=== PATIENT | female | born 1930 | race Caucasian/White ===

== ENCOUNTER 2016-11-17 16:15 | Emergency (ER) | payer MEDICARE ==
[2016-11-17] MEDS ORDERED: HYDROCODONE/ACETAMINOPHEN 5-325 MG TABLET PO ONE (17:06)
--- NOTE | 2016-11-17 17:10 | ER Document Report ---
HPI - HPI Patient complains to provider of: Left wrist injury Onset: This afternoon Onset/Duration: Sudden Quality of pain: Achy Pain Level: 3 Context: Pt States that she tripped wearing flip-flops and fell onto an outstretched hand. Patient complains of left wrist pain. Patient is right-hand dominant. Patient denies any head injury or loss of consciousness. Associated Symptoms: Other - left wrist injury Exacerbated by: Movement Relieved by: Denies Similar symptoms previously: No Recently seen / treated by doctor: No - ROS ROS below otherwise negative: Yes Systems Reviewed and Negative: Yes All other systems reviewed and negative - GASTROINTESTINAL Gastrointestinal: DENIES: Nausea, Patient vomiting - REPRODUCTIVE Reproductive: DENIES: : - MUSCULOSKELETAL Musculoskeletal: REPORTS: Extremity pain - left wrist, Swelling - DERM Skin Color: Ecchymosis Skin Problems: None Past Medical History - General Information source: Patient, Relative - Social History Smoking Status: Never Smoker Frequency of alcohol use: None Drug Abuse: None Occupation: none Lives with: Family Family History: Reviewed & Not Pertinent Patient has suicidal ideation: No Patient has homicidal ideation: No - Past Medical History Cardiac Medical History: Reports: Hx Hypercholesterolemia Pulmonary Medical History: Denies: Hx Tuberculosis Neurological Medical History: Reports: Other - TIA Renal/ Medical History: Denies: Hx Peritoneal Dialysis Past Surgical History: Reports: Hx Appendectomy, Hx Cholecystectomy, Hx Hysterectomy, Hx Orthopedic Surgery - left knee replacement. Denies: Hx Pacemaker - Immunizations Hx Diphtheria, Pertussis, Tetanus Vaccination: No Vertical Provider Document - CONSTITUTIONAL Agree With Documented VS: Yes Exam Limitations: No Limitations General Appearance: WD/WN, No Apparent Distress - INFECTION CONTROL TRAVEL OUTSIDE OF THE [place] IN LAST 30 DAYS: No - HEENT HEENT: Atraumatic, Normocephalic - NECK Neck: Normal Inspection - RESPIRATORY Respiratory: Breath Sounds Normal, No Respiratory Distress - CARDIOVASCULAR Cardiovascular: Regular Rate, Regular Rhythm, No Murmur Pulses: Normal: Radial - MUSCULOSKELETAL/EXTREMETIES Musculoskeletal/Extremeties: MAEW, Tender - Left distal radius tenderness with swelling and overlying ecchymosis, Edema, Eccymosis - NEURO Level of Consciousness: Awake, Alert, Appropriate Motor/Sensory: No Motor Deficit - DERM Integumentary: Warm, Dry, No Rash Course - Diagnostic Test Radiology reviewed: Pending, Image reviewed Procedures - Immobilization Left Wrist Pre-Proc Neuro Vasc Exam: Normal Immobilizer type: Sugar tong, Sling Performed by: PCT Post-Proc Neuro Vasc Exam: Normal Alignment checked and good: Yes Discharge - Discharge Clinical Impression: Distal radius fracture, left Qualifiers: Encounter type: initial encounter Fracture type: closed Fracture morphology: unspecified fracture morphology Qualified Code(s): S52.502A - Unspecified fracture of the lower end of left radius, initial encounter for closed fracture Condition: Stable Disposition: HOME, SELF-CARE Instructions: Fractured Radius ([facility]), Splint Precautions ([facility]), Temporary Sling ([facility]), Ice & Elevation ([facility]), Oral Narcotic Medication ([facility]) Additional Instructions: Return as needed for any new or worsening symptoms Follow up with orthopedic doctor, call Saturday for a follow-up appointment Prescriptions: Hydrocodone/Acetaminophen [Central 5-325 Tablet] 1 each PO Q8 PRN #15 tablet PRN Reason: Referrals: [facility] [place] [facility] ([facility]) [Provider Group] - 11/19/16
--- NOTE | 2016-11-17 17:15 | RADIOLOGY REPORT (SQ) ---
EXAM DESCRIPTION: FOREARM LEFT COMPLETED DATE/TIME: 11/17/2016 4:51 pm REASON FOR STUDY: fall COMPARISON: None. NUMBER OF VIEWS: Two views. TECHNIQUE: Two radiographic images acquired of the left forearm, including elbow and wrist in at [address] one projection. LIMITATIONS: None. FINDINGS: MINERALIZATION: Normal. BONES: Cortical irregularity is seen of the distal radial metaphysis. Mineralization and alignment i s otherwise normal. SOFT TISSUES: No obvious swelling or foreign body. OTHER: No other significant finding. IMPRESSION: Cortical irregularity of the distal radial metaphysis may represent a nondisplaced fract ure; recommend correlation with mechanism of injury and point tenderness. TECHNICAL DOCUMENTATION: JOB ID: [id number] [employer]- All Rights Reserved
[2016-11-17 18:59] VITALS: BP 114/89
== END 2016-11-17 18:57 | disposition home or self-care (01) ==
LOC: ER 16:15
PROC: 2W3DX1Z Immobilization of Left Lower Arm using Splint (ICD-10-PCS; principal; 2016-11-17)
DX: S52.502A Unspecified fracture of the lower end of left radius, initial encounter for closed fracture (principal); W01.0XXA Fall on same level from slipping, tripping and stumbling without subsequent striking against object, initial encounter; E78.00 Pure hypercholesterolemia, unspecified; Z86.73 Personal history of transient ischemic attack (TIA), and cerebral infarction without residual deficits; Z90.49 Acquired absence of other specified parts of digestive tract; Z90.710 Acquired absence of both cervix and uterus; Z96.652 Presence of left artificial knee joint
CPT/HCPCS: 99283; 73090; 29125; A9270

== ENCOUNTER → 2018-10-02 | Outpatient (CLI) | payer MEDICARE ==
--- NOTE | 2018-10-02 11:28 | RADIOLOGY REPORT (SQ) ---
EXAM DESCRIPTION: C SP 4 OR 5 VIEWS COMPLETED DATE/TIME: 10/02/2018 11:17 am REASON FOR STUDY: PAIN IN RIGHT SHOULDER M25.511 PAIN IN RIGHT SHOULDER M54.2 CERVICALGIA COMPARISON: None. NUMBER OF VIEWS: Five views including obliques. TECHNIQUE: AP, lateral, obliques and odontoid radiographic images acquired of the cervical spine. LIMITATIONS: None. FINDINGS: MINERALIZATION: Normal. SEGMENTATION: Normal. ALIGNMENT: Normal. VERTEBRAE: Maintained height. No fracture or worrisome bone lesion. DISCS: Multilevel disc space narrowing with osteophytes. POSTERIOR ELEMENTS: Pedicles and facets are intact. No posterior arch defects. Facet arthropathy is present. FORAMINA: Multilevel bilateral foraminal narrowing. HARDWARE: None in the spine. PARASPINAL SOFT TISSUES: Normal. OTHER: No other significant finding. IMPRESSION: SPONDYLOSIS WITHOUT BONE LESION OR FRACTURE. TECHNICAL DOCUMENTATION: JOB ID: [id number] [employer]- All Rights Reserved Reading location - IP/workstation name: [email or web address]
--- NOTE | 2018-10-02 11:36 | RADIOLOGY REPORT (SQ) ---
EXAM DESCRIPTION: SHOULDER RIGHT 2 OR MORE VIEWS COMPLETED DATE/TIME: 10/02/2018 11:17 am REASON FOR STUDY: M M25.511 PAIN IN RIGHT SHOULDER M54.2 CERVICALGIA COMPARISON: None. NUMBER OF VIEWS: Three views. TECHNIQUE: Internal rotation, external rotation, and Y view images acquired of the right shoulder. LIMITATIONS: None. FINDINGS: MINERALIZATION: Normal. BONES: No acute fracture or dislocation. No worrisome bone lesions. JOINTS: No dislocation. VISUALIZED LUNGS AND RIBS: No pneumothorax. No rib fracture. SOFT TISSUES: No radiopaque foreign body. OTHER: No other significant finding. IMPRESSION: NEGATIVE STUDY OF THE RIGHT SHOULDER. NO RADIOGRAPHIC EVIDENCE OF ACUTE INJURY. TECHNICAL DOCUMENTATION: JOB ID: [id number] [employer]- All Rights Reserved Reading location - IP/workstation name: [email or web address]
== END ==
LOC: OD 10:55
PROVIDERS: ATTEND Physician Assistant
DX: M25.511 Pain in right shoulder (principal); M54.2 Cervicalgia; M47.892 Other spondylosis, cervical region
CPT/HCPCS: 72050

== ENCOUNTER 2020-07-08 09:54 | Emergency (ER) | payer MEDICARE ==
[2020-07-08] MEDS ORDERED: HYDROCODONE/ACETAMINOPHEN 5-325 MG TABLET PO ONE (10:12)
--- NOTE | 2020-07-08 10:14 | ER Document Report ---
ED Medical Screen (RME) - General Chief Complaint: Arm Pain Stated Complaint: FALL/LEFT ARM PAIN Time Seen by Provider: 07/08/20 10:08 Primary Care Provider: MAIN CM PA [Primary Care Provider] - Follow up as needed Notes: Patient states that she was walking up stairs last night and is uncertain what happened but fell. Patient states that she did not trip but had some vertigo that caused her to fall. Patient states she fell down 3 stairs injuring the left upper arm. Patient denies any chest pain, headache or shortness of breath. I have greeted and performed a rapid initial assessment of this patient. A comprehensive ED assessment and evaluation of the patient, analysis of test results and completion of the medical decision making process will be conducted by additional ED providers. TRAVEL OUTSIDE OF THE [place] IN LAST 30 DAYS: No - Related Data Allergies/Adverse Reactions: No Known Allergies Allergy (Verified 11/17/16 16:38) Past Medical History - Past Medical History Cardiac Medical History: Reports: Hx Hypercholesterolemia Pulmonary Medical History: Denies: Hx Tuberculosis Renal/ Medical History: Denies: Hx Peritoneal Dialysis Past Surgical History: Reports: Hx Appendectomy, Hx Cholecystectomy, Hx Hysterectomy, Hx Orthopedic Surgery - left knee replacement. Denies: Hx Pacemaker - Immunizations Hx Diphtheria, Pertussis, Tetanus Vaccination: No Physical Exam - Vital signs Vitals: Temp Pulse Resp BP Pulse Ox 99.0 F 109 H 16 119/69 99 07/08/20 09:59 07/08/20 09:59 07/08/20 09:59 07/08/20 09:59 07/08/20 09:59 - General General appearance: Alert In distress: None Notes: Tenderness to left humerus, 2+ radial pulse Course - Vital Signs Vital signs: Temp Pulse Resp BP Pulse Ox 99.0 F 109 H 16 119/69 99 07/08/20 09:59 07/08/20 09:59 07/08/20 09:59 07/08/20 09:59 07/08/20 09:59 Doctor's Discharge - Discharge Referrals: MAIN CM PA [Primary Care Provider] - Follow up as needed
--- NOTE | 2020-07-08 10:56 | ER Document Report ---
ED Extremity Problem, Upper - General Chief Complaint: Arm Pain Stated Complaint: FALL/LEFT ARM PAIN Time Seen by Provider: 07/08/20 10:08 Primary Care Provider: MAIN CM PA [Primary Care Provider] - Follow up as needed Notes: CHIEF COMPLAINT: Left shoulder injury from fall HPI: 89-year-old female presenting to the emergency department complaining of left shoulder pain after a fall yesterday. Patient was going up the stairs believes she lost her balance and fell backwards landing on the shoulder. Denies hip injury was able to stand up and walk afterwards. Denies head injury denies back pain. Patient states to me that she did not have chest pain or shortness of breath at the time of the fall. She states she did not get dizzy but is not sure why she fell specifically. Patient denies any other complaints except for left shoulder pain. ROS: See HPI - all other systems were reviewed and are otherwise negative Constitutional: no fever Eyes: no drainage, no blurred vision ENT: no runny nose, no sore throat Cardiovascular: no chest pain Resp: no SOB, no cough GI: no vomiting, no diarrhea, no abdominal pain : no dysuria Integumentary: no rash Allergy: no hives Musculoskeletal: + extremity pain or swelling Neurological: no numbness/tingling, no weakness MEDICATIONS: I agree with the patient medications as charted by the RN. ALLERGIES: I agree with the allergies as charted by the RN. PAST MEDICAL HISTORY/PAST SURGICAL HISTORY: Reviewed and agree as charted by RN. SOCIAL HISTORY: Reviewed and agree as charted by RN. FAMILY HISTORY: No significant familial comorbid conditions directly related to patient complaint EXAM: Reviewed vital signs as charted by RN. CONSTITUTIONAL: Alert and oriented and responds appropriately to questions. Well-appearing; well-nourished HEAD: Normocephalic; atraumatic EYES: Conjunctivae clear, sclerae non-icteric ENT: normal nose; no rhinorrhea; moist mucous membranes; pharynx without lesions noted, no uvula edema or deviation, no tonsillar hypertrophy, phonation normal NECK: Supple without meningismus; non-tender; no cervical lymphadenopathy, no masses CARD: RRR; no murmurs, no clicks, no rubs, no gallops; symmetric distal pulses RESP: Normal chest excursion without splinting or tachypnea; breath sounds clear and equal bilaterally; no wheezes, no rhonchi, no rales, pulse oximetry 97% on room air not hypoxic ABD/GI: Normal bowel sounds; non-distended; soft, non-tender, no rebound, no guarding; no palpable organomegaly or masses. BACK: The back appears normal and is non-tender to palpation, there is no CVA tenderness EXT: There is no visible swelling or bruising to the left shoulder region she has pain specifically at the humeral head and humeral neck region of the left shoulder. There is no elbow discomfort on palpation. There is no neck or back discomfort on palpation. NEURO: Motor and sensory function intact PSYCH: The patient's mood and manner are appropriate. Grooming and personal hygiene are appropriate. MDM: EKG sinus tachycardia heart rate 104 FL 144 QT 364 QTC 479. Left anterior fascicular block, abnormal EKG. interpreted by ER physicians. 89-year-old female presenting for fall down 2-3 stairs. On my review of her x-ray she appears to have a humeral neck fracture in the left shoulder. She denies any other injuries or complaints. She states specifically that she did not become dizzy prior to the fall. She is not specifically sure why she fell but believes she just lost her balance. She does live alone at home but states that she has many people who will come and help her if she needs help at home. We spoke about pain medications and possibilities for falls with pain medications. case discussed with Dr. Cho, attending. TRAVEL OUTSIDE OF THE [place] IN LAST 30 DAYS: No - Related Data Allergies/Adverse Reactions: No Known Allergies Allergy (Verified 11/17/16 16:38) Past Medical History - Social History Smoking Status: Never Smoker Family History: Reviewed & Not Pertinent - Past Medical History Cardiac Medical History: Reports: Hx Hypercholesterolemia Pulmonary Medical History: Denies: Hx Tuberculosis Renal/ Medical History: Denies: Hx Peritoneal Dialysis Past Surgical History: Reports: Hx Appendectomy, Hx Cholecystectomy, Hx Hysterectomy, Hx Orthopedic Surgery - left knee replacement. Denies: Hx Pacemaker - Immunizations Hx Diphtheria, Pertussis, Tetanus Vaccination: No Physical Exam - Vital signs Vitals: Temp Pulse Resp BP Pulse Ox 99.0 F 109 H 16 119/69 99 07/08/20 09:59 07/08/20 09:59 07/08/20 09:59 07/08/20 09:59 07/08/20 09:59 Course - Re-evaluation Re-evalutation: 07/08/20 12:00 Left humeral neck fracture on shoulder x-ray. Will sling for comfort refer to orthopedics - Vital Signs Vital signs: Temp Pulse Resp BP Pulse Ox 99.0 F 109 H 16 119/69 99 07/08/20 09:59 07/08/20 09:59 07/08/20 09:59 07/08/20 09:59 07/08/20 09:59 - Laboratory Results Critical Laboratory Results Reviewed: No Critical Results - Radiology Results Critical Radiology Results Reviewed: No Critical Results Procedures - Immobilization Left Arm Time completed: 12:03 Pre-Proc Neuro Vasc Exam: Normal Immobilizer type: Sling Performed by: PCT Post-Proc Neuro Vasc Exam: Normal, Unchanged from pre-exam Alignment checked and good: Yes Discharge - Discharge Clinical Impression: Fall Qualifiers: Encounter type: initial encounter Qualified Code(s): W19.XXXA - Unspecified fall, initial encounter Fx humeral neck Qualifiers: Encounter type: initial encounter Fracture type: closed Laterality: left Qualified Code(s): S42.212A - Unspecified displaced fracture of surgical neck of left humerus, initial encounter for closed fracture Condition: Stable Disposition: HOME, SELF-CARE Instructions: Sling to be Used ([facility]), Fracture Proximal Humerus Additional Instructions: Use the sling for comfort. Watch for balance issues if taking narcotics for pain. Follow-up closely with orthopedics for further evaluation and treatment call for appointment. It was noted on your x-ray imaging today that you do have a fracture in the shoulder that will need further evaluation Prescriptions: Oxycodone HCl/Acetaminophen [Percocet 2.5-325 Mg Tablet] 1 each PO Q6HP PRN #14 tablet PRN Reason: Referrals: MAIN CM PA [Primary Care Provider] - Follow up as needed PASQUALE CHAVEZ JR, DO [ACTIVE PROVISIONAL STAFF] - Follow up as needed
--- NOTE | 2020-07-08 11:05 | RADIOLOGY REPORT (SQ) ---
EXAM DESCRIPTION: HUMERUS LEFT IMAGES COMPLETED DATE/TIME: 07/08/2020 10:53 am REASON FOR STUDY: fall COMPARISON: None. NUMBER OF VIEWS: Two views. TECHNIQUE: AP and lateral views of the left humerus were obtained. LIMITATIONS: None. FINDINGS: MINERALIZATION: Osteopenia. BONES: Acute nondisplaced fracture of the greater tubercle of the humerus. SOFT TISSUES: No soft tissue swelling or radiopaque foreign body. OTHER: Osteoarthrosis of the acromioclavicular joint. IMPRESSION: Suspected acute nondisplaced fracture of the greater tubercle of the humerus. Consider correlation with a shoulder radiograph. TECHNICAL DOCUMENTATION: JOB ID: [id number] 2010 [employer]- All Rights Reserved Reading location - IP/workstation name: [email or web address]
--- NOTE | 2020-07-08 11:56 | EKG REPORT ---
SEVERITY:- ABNORMAL ECG - SINUS TACHYCARDIA LEFT ANTERIOR FASCICULAR BLOCK CONSIDER ANTERIOR INFARCT : Confirmed by: Clive Segura MD 08-Jul-2020 11:56:12
--- NOTE | 2020-07-08 11:59 | RADIOLOGY REPORT (SQ) ---
EXAM DESCRIPTION: SHOULDER LEFT 2 OR MORE VIEWS IMAGES COMPLETED DATE/TIME: 07/08/2020 10:26 am REASON FOR STUDY: fall poss shoulder fx. COMPARISON: None. NUMBER OF VIEWS: Three views. TECHNIQUE: Internal rotation, external rotation, and Y view images acquired of the left shoulder. LIMITATIONS: None. FINDINGS: MINERALIZATION: Osteopenia. BONES: There is an acute impacted humeral neck fracture. No significant angulation or displacement. Normal glenohumeral joint space alignment. JOINTS: Moderate osteoarthritis acromioclavicular joint. VISUALIZED LUNGS AND RIBS: No pneumothorax. No rib fracture. SOFT TISSUES: No radiopaque foreign body. OTHER: No other significant finding. IMPRESSION: Acute impacted nondisplaced fracture left humeral neck. No dislocation. Moderate osteo penia. TECHNICAL DOCUMENTATION: JOB ID: [id number] 2010 [email or web address]- All Rights Reserved Reading location - IP/workstation name: [email or web address]
[2020-07-08 12:20] VITALS: BP 127/76
== END 2020-07-08 12:21 | disposition home or self-care (01) ==
LOC: ER 09:54
DX: S42.212A Unspecified displaced fracture of surgical neck of left humerus, initial encounter for closed fracture (principal); W10.9XXA Fall (on) (from) unspecified stairs and steps, initial encounter; Y93.89 Activity, other specified; Y92.009 Unspecified place in unspecified non-institutional (private) residence as the place of occurrence of the external cause; R00.0 Tachycardia, unspecified; I44.4 Left anterior fascicular block
CPT/HCPCS: 93005; 99284; 73060; 73030; 93010; A9270